=== PATIENT | male | born 1955 | race Two or more races ===

== ENCOUNTER 2023-08-01 20:49 | Inpatient (IN) | payer MEDICARE, OTHER ==
[~2023-08-01] VITALS: Ht 167.6 cm; Wt 86.2 kg
[2023-08-01 21:37] LABS: BASOPHILS # (AUTO) 0.1 K/uL (0.0-0.2); BASOPHILS % (AUTO) 0.7 % (0.0-2.0); EOSINOPHILS # (AUTO) 0.1 K/uL (0.0-0.7); EOSINOPHILS % (AUTO) 1.1 % (0.0-6.0); HEMATOCRIT 43 % (39-51); HEMOGLOBIN 14.8 g/dL (13.5-17.5); LYMPHOCYTES # (AUTO) 3.3 K/uL (0.8-4.8); LYMPHOCYTES % (AUTO) 36.4 % (20.0-44.0); MEAN CORPUSCULAR HEMOGLOBIN 33 PG (26.0-33.0); MEAN CORPUSCULAR HGB CONC 34 g/dl (31.0-36.0); MEAN CORPUSCULAR VOLUME 97 fL (80-96); MONOCYTES # (AUTO) 0.9 K/uL (0.1-1.30); MONOCYTES % (AUTO) 9.5 % (2.0-12.0); NEUTROPHILS # (AUTO) 4.7 K/uL (1.8-8.9); NEUTROPHILS % (AUTO) 52.3 % (43.0-81.0); PLATELET COUNT (AUTO) 252 K/uL (150-450); RED BLOOD CELL COUNT(AUTO) 4.47 MIL/uL (4.5-6.0); RED CELL DISTRIBUTION WIDTH 14.5 % (11.5-15.0); WHITE BLOOD COUNT (AUTO) 9.1 K/uL (4.3-11.0)
[2023-08-01 21:50] LABS: CALCIUM, SERUM 9.6 mg/dL (8.5-10.1); CARBON DIOXIDE 25 mmol/L (21-32); CHLORIDE 107 mmol/L (98-107); CREATININE 0.9 mg/dL (0.6-1.3); GLUCOSE 100 mg/dL (74-106); POTASSIUM 4.4 mmol/L (3.5-5.1); SODIUM SERUM 142 mmol/L (136-145); UREA NITROGEN, BLOOD 18 mg/dL (7-18)
[2023-08-01 21:53] LABS: APPEARANCE,URINE CLEAR (CLEAR); BILIRUBIN,URINE NEGATIVE (NEGATIVE); BLOOD, URINE NEGATIVE Ery/uL (NEGATIVE); COLOR,URINE YELLOW (YELLOW); KETONES,URINE NEGATIVE (NEGATIVE); LEUKOCYTE ESTERASE ,URINE NEGATIVE (NEGATIVE); NITRITE, URINE NEGATIVE (NEGATIVE); PH,URINE 6.5 (5.0-8.0); PROTEIN,URINE NEGATIVE (NEGATIVE); UGLUCOSE NEGATIVE (NEGATIVE); UROBILINOGEN,URINE 0.2 EU/dL (0.2)
[2023-08-01 22:00] LABS: ACETAMINOPHEN 0 ug/ml (10-30); ALANINE AMINOTRANSFERASE 33 U/L (12-78); ALBUMIN 3.2 g/dL (3.4-5.0); ALCOHOL, BLOOD < 3 mg/dL (0-10); ALKALINE PHOSPHATASE 74 U/L (46-116); ASPARTATE AMINOTRANSFERASE 20 U/L (15-37); BILIRUBIN,DIRECT 0.1 mg/dL (0.0-0.2); BILIRUBIN,TOTAL 0.3 mg/dL (0.2-1.0)
[2023-08-01 22:04] LABS: AMPHETAMINE, URINE NEGATIVE (NEGATIVE); BARBITURATE, URINE NEGATIVE (NEGATIVE); BENZODIAZEPINE, URINE NEGATIVE (NEGATIVE); CANNABINOID, URINE NEGATIVE (NEGATIVE); COCCAINE, URINE NEGATIVE (NEGATIVE); OPIATE, URINE NEGATIVE (NEGATIVE); PHENCYCLIDINE SCREEN,URINE NEGATIVE (NEGATIVE)
[2023-08-01] MEDS ORDERED: FAMO20TA8 PO (22:33)
[2023-08-01] MEDS ORDERED: DOCU100T2 PO (22:33)
[2023-08-01] MEDS ORDERED: TAMS-12 PO (22:33)
[2023-08-01] MEDS ORDERED: LORA-259 PO (22:33)
[2023-08-01] MEDS ORDERED: QUET25TA PO (22:33)
[2023-08-01] MEDS ORDERED: ZOLP5TAB8 PO (22:33)
[2023-08-01] MEDS ORDERED: DEUT12TA PO (22:33)
[2023-08-01] MEDS ORDERED: DIVA500T54 PO (22:33)
[2023-08-02 01:30] VITALS: BP 123/68; TEMP 98.2; O2SAT 99
[2023-08-02] MEDS ORDERED: MAG HYDROX/AL HYDROX/SIMETH 30 ML UDC PO PRN (01:30)
[2023-08-02] MEDS ORDERED: QUETIAPINE FUMARATE 25 MG TABLET PO PRN ×2 (01:30→12:30)
[2023-08-02] MEDS: BLOOD SUGAR DIAGNOSTIC 1 EACH STRIP IN ONE (02:12)
[2023-08-02 08:00] VITALS: BP 126/80; TEMP 98; O2SAT 99
[2023-08-02] MEDS: DIVALPROEX SODIUM 125 MG TABLET.DR PO SCH (13:03)
[2023-08-02 16:00] VITALS: BP 132/89; TEMP 98.9; O2SAT 100
[2023-08-02 20:00] VITALS: BP 140/96; TEMP 98.7; O2SAT 98
[2023-08-02] MEDS: risperiDONE 1 MG TABLET PO SCH (20:44)
[2023-08-02] MEDS: TAMSULOSIN 0.4 MG CAP.SR.24H PO SCH (21:06)
[2023-08-03 08:00] VITALS: BP 138/98; TEMP 98.6; O2SAT 98
[2023-08-03 08:10] LABS: ALBUMIN 2.9 g/dL (3.4-5.0); BILIRUBIN,TOTAL 0.4 mg/dL (0.2-1.0); CALCIUM, SERUM 8.9 mg/dL (8.5-10.1); CREATININE 0.7 mg/dL (0.6-1.3); POTASSIUM 4.2 mmol/L (3.5-5.1); TOTAL PROTEIN, SERUM 6.6 g/dL (6.4-8.2)
[2023-08-03] MEDS: DOCUSATE SODIUM 100 MG CAPSULE PO SCH (08:30)
[2023-08-03 16:00] VITALS: BP 135/91; TEMP 98.2; O2SAT 99
[2023-08-03 20:00] VITALS: BP 120/79; TEMP 98.4; O2SAT 97
[2023-08-04 08:00] VITALS: BP 137/98; TEMP 98; O2SAT 95
[2023-08-04 16:00] VITALS: BP 134/87; TEMP 97.9; O2SAT 100
[2023-08-04 20:00] VITALS: BP 128/75; TEMP 98; O2SAT 99
[2023-08-04] MEDS: DIVALPROEX SODIUM 250 MG TABLET.DR PO SCH (20:39)
[2023-08-05 08:00] VITALS: BP 142/98; TEMP 98.6; O2SAT 97
[2023-08-05 16:00] VITALS: BP 119/84; TEMP 98.4; O2SAT 98
[2023-08-05 20:23] VITALS: BP 130/74; TEMP 99.5; O2SAT 98
[2023-08-06 08:00] VITALS: BP 119/86; TEMP 98.6; O2SAT 98
[2023-08-06 16:00] VITALS: BP 129/90; TEMP 97.9; O2SAT 99
[2023-08-06 20:25] VITALS: BP 117/80; TEMP 97.5; O2SAT 98
[2023-08-06] MEDS: risperiDONE 1 MG TABLET PO SCH (21:27)
[2023-08-07 08:00] VITALS: BP 126/89; TEMP 98; O2SAT 98
[2023-08-07] MEDS: risperiDONE 1 MG TABLET PO SCH (08:32)
[2023-08-07 16:05] VITALS: BP 131/85; TEMP 98; O2SAT 96
[2023-08-07 20:18] VITALS: BP 116/71; TEMP 98.2; O2SAT 98
[2023-08-07] MEDS: ZOLPIDEM TARTRATE 5 MG TABLET PO PRN (21:23)
[2023-08-08 08:00] VITALS: BP 123/72; TEMP 98.6; O2SAT 98
[2023-08-08] MEDS: BISACODYL (5 MG) 5 MG TABLET.DR PO PRN (13:17)
[2023-08-08 16:00] VITALS: BP 122/83; TEMP 97.5; O2SAT 96
[2023-08-08 20:20] VITALS: BP 120/82; TEMP 98.1; O2SAT 99
[2023-08-08] MEDS: DIVALPROEX SODIUM 125 MG TABLET.DR PO SCH (21:08)
[2023-08-09 20:00] VITALS: BP 105/78; TEMP 97.6; O2SAT 98
[2023-08-09] MEDS: MAGNESIUM HYDROXIDE 30 ML UDC PO PRN (21:41)
[2023-08-10 08:00] VITALS: BP 119/90; TEMP 98; O2SAT 94
[2023-08-10 16:00] VITALS: BP 125/77; TEMP 97.9; O2SAT 98
[2023-08-10] MEDS: SERTRALINE HCL 25 MG TABLET PO SCH (18:30)
[2023-08-10 20:00] VITALS: BP_SYST 133; BP_DIAS 87; BP_DIAS 89; TEMP 98.1; O2SAT 97
[2023-08-11 08:31] VITALS: BP 129/83; TEMP 97.5; O2SAT 98
[2023-08-11 16:18] VITALS: BP 102/71; TEMP 98.9; O2SAT 97
[2023-08-11 20:00] VITALS: BP 144/109; TEMP 98; O2SAT 98
[2023-08-12 08:00] VITALS: BP 123/81; TEMP 97.7; O2SAT 96
[2023-08-12] MEDS ORDERED: DIVALPROEX SODIUM 125 MG CAP.SPRINK PO SCH (14:00)
[2023-08-12] MEDS: DIVALPROEX SODIUM 125 MG CAP.SPRINK PO SCH (14:48)
[2023-08-12 16:00] VITALS: BP 125/81; TEMP 97.9; O2SAT 97
[2023-08-12] MEDS: ACETAMINOPHEN 325 MG TABLET PO PRN (19:13)
[2023-08-12 21:16] VITALS: BP 129/96; TEMP 98.2; O2SAT 98
[2023-08-13 08:00] VITALS: BP 119/91; TEMP 97.8; O2SAT 96
[2023-08-13] MEDS: SERTRALINE HCL 25 MG TABLET PO SCH (08:38)
[2023-08-13 16:00] VITALS: BP 135/86; TEMP 97.9; O2SAT 98
[2023-08-13 20:21] VITALS: BP 124/75; TEMP 97.8; O2SAT 96
[2023-08-14 08:00] VITALS: BP 135/97; TEMP 97.8; O2SAT 94
[2023-08-14 15:58] VITALS: BP 126/98; TEMP 98.1; O2SAT 94
[2023-08-14 20:00] VITALS: BP 135/88; TEMP 98.6; O2SAT 97
[2023-08-15 08:00] VITALS: BP 123/75; TEMP 97.9; O2SAT 97
[2023-08-15 16:00] VITALS: BP 129/81; TEMP 98.6; O2SAT 97
[2023-08-16 08:00] VITALS: BP 113/87; TEMP 98; O2SAT 95
[2023-08-16 16:00] VITALS: BP 101/80; TEMP 98; O2SAT 100
[2023-08-16 20:00] VITALS: BP 117/69; TEMP 97.6; O2SAT 97
[2023-08-17 08:00] VITALS: BP 134/91; TEMP 97.5; O2SAT 96
[2023-08-17] MEDS: SERTRALINE HCL 25 MG TABLET PO SCH (08:10)
[2023-08-17 16:00] VITALS: BP 121/86; TEMP 98; O2SAT 95
[2023-08-17 20:00] VITALS: BP 146/91; TEMP 97.8; O2SAT 96
[2023-08-18 08:00] VITALS: BP 114/82; TEMP 97.6; O2SAT 96
[2023-08-18 16:00] VITALS: BP 114/84; TEMP 98; O2SAT 97
[2023-08-18 20:00] VITALS: BP 134/89; TEMP 97.8; O2SAT 96
[2023-08-19 08:00] VITALS: BP 142/90; TEMP 98.4; O2SAT 95
[2023-08-19 16:00] VITALS: BP 114/74; TEMP 98.8; O2SAT 97
[2023-08-19 20:14] VITALS: BP 131/83; TEMP 98.1; O2SAT 97
[2023-08-20 08:00] VITALS: BP 147/91; TEMP 97.9; O2SAT 97
== END 2023-08-20 13:25 | DRG 885 ==
LOC: ER 20:59 → GPS 08-02 00:51
PROVIDERS: ADMIT Psychiatry & Neurology Psychiatry; ATTEND Nurse Practitioner Acute Care
DX: F39 Unspecified mood [affective] disorder (principal); F03.92 Unspecified dementia, unspecified severity, with psychotic disturbance; F03.911 Unspecified dementia, unspecified severity, with agitation; F02.83 Dementia in other diseases classified elsewhere, unspecified severity, with mood disturbance; E44.0 Moderate protein-calorie malnutrition; F29 Unspecified psychosis not due to a substance or known physiological condition; N40.0 Benign prostatic hyperplasia without lower urinary tract symptoms; F20.0 Paranoid schizophrenia; F31.9 Bipolar disorder, unspecified; Z20.822 Contact with and (suspected) exposure to COVID-19; E11.42 Type 2 diabetes mellitus with diabetic polyneuropathy; Z79.899 Other long term (current) drug therapy; Z73.6 Limitation of activities due to disability; I10 Essential (primary) hypertension; E88.09 Other disorders of plasma-protein metabolism, not elsewhere classified; K59.00 Constipation, unspecified; E78.5 Hyperlipidemia, unspecified; Z87.891 Personal history of nicotine dependence
CPT/HCPCS: 36415; 80048-TC; 80053-TC; 80061-TC; 80076-TC; 80164-TC; 82962-TC; 85025-TC; 87081-TC; G0480